=== PATIENT | male | born 1965 | race Caucasian/White ===

== ENCOUNTER 2019-09-21 01:42 | Emergency (ER) | payer OTHER ==
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
[2019-09-21 05:32] VITALS: TEMP 97.6
[2019-09-21 05:33] VITALS: BP 125/73; O2SAT 99
--- NOTE | 2019-09-22 12:29 | RAD REPORT ---
EXAM DESCRIPTION: CT Head and Cervical Spine Without Intravenous Contrast CLINICAL HISTORY: The patient is 53 years old and is Male; PAIN TECHNIQUE: Axial computed tomography images of the head/brain and cervical spine without intravenous contrast. Sagittal and coronal reformatted images were created and reviewed. This CT exam was pe rformed using one or more of the following dose reduction techniques: automated exposure control, a djustment of the mA and/or kV according to patient size, and/or use of iterative reconstruction techn ique. COMPARISON: No relevant prior studies available. FINDINGS: BRAIN: Unremarkable. No hemorrhage. No significant white matter disease. No edema. VENTRICLES: Unremarkable. No ventriculomegaly. SKULL: No acute fracture. SINUSES: Mucoperiosteal thickening of the maxillary sinuses and ethmoid air cells is noted. MASTOID AIR CELLS: Unremarkable as visualized. No mastoid effusion. VERTEBRAE: The vertebral body heights and alignment are maintained. No acute fracture. DISCS/SPINAL CANAL/NEURAL FORAMINA: The intervertebral disc spaces are maintained. No spinal can al stenosis. SOFT TISSUES: The soft tissues are normal. LUNG APICES: The lung apices are clear. IMPRESSION: 1. No acute intracranial findings. 2. No fracture or malalignment of the cervical spine. Electronically signed by: Macarena Solano MD 09/21/2019 5:01 AM CDT Due to temporary technical issues with the PACS/Fluency reporting system, reports are being signed by the in house radiologist as a courtesy to ensure prompt reporting. The interpreting radiologist is f ully responsible for the content of the report.
== END 2019-09-21 05:16 | disposition home or self-care (01) ==
LOC: ER 01:42
DX: S00.12XA Contusion of left eyelid and periocular area, initial encounter (principal); W22.8XXA Striking against or struck by other objects, initial encounter; Y93.9 Activity, unspecified; Y92.89 Other specified places as the place of occurrence of the external cause; Z23 Encounter for immunization; Z88.8 Allergy status to other drugs, medicaments and biological substances; I10 Essential (primary) hypertension; E78.00 Pure hypercholesterolemia, unspecified; F17.210 Nicotine dependence, cigarettes, uncomplicated
CPT/HCPCS: 70450; 72125; 99283

== ENCOUNTER 2021-10-14 21:02 | Emergency (ER) | payer OTHER ==
--- OUTSIDE RECORDS SUMMARY | 2021-10-14 21:04 | XMS REPORT | Continuity of Care Document ---
:1965 Author Organization [facility] t Address [address] [place] [address] Care Team Providers Name Role Phone LYNNETTE Attending Clinician Unavailable MD FERNY CHURCH Attending Clinician Unavailable LYNNETTE Admitting Clinician Unavailable MD FERNY CHURCH Admitting Clinician Unavailable Problems This patient has no known problems. Allergies, Adverse Reactions, Alerts This patient has no known allergies or adverse reactions. Medications This patient has no known medications. Procedures This patient has no known procedures. Encounters Start End Encounter Admission Attending Care Care Encounter Source Date/Time Date/Time Type Type Clinicians Facility Department ID 2021-01-07 2021-01-07 Outpatient [facility] [id number] [place] 00:00:00 00:00:00 [facility] [address] 2021-01-05 2021-01-05 Outpatient [facility] [id number] [place] 00:00:00 00:00:00 SERGEY [address] 2020-12-24 2020-12-24 Outpatient [facility] [id number] [place] 00:00:00 00:00:[address] 2020-12-21 2020-12-21 Outpatient [facility] [id number] [place] 00:00:00 00:00:[address] Results Test Description Test Time Test Comments Results Result Comments Source SARS-CoV-2 (COVID-19) RNA [Presence] in Respiratory sp ecimen by 2021-01-05 15:48:53 JOSLYN with probe detection Test Item Value Reference Range Interpretation Comme nts SARS-CoV-2 (COVID-19) RNA [Presence] in Respiratory Not detected No t-Detected specimen by JOSLYN with probe detection (test code = 60098-9)
--- NOTE | 2021-10-14 21:45 | RAD REPORT ---
EXAM DESCRIPTION: Katarina Single View10/14/2021 9:34 pm CLINICAL HISTORY: Hypertension COMPARISON: October 14, 2021 FINDINGS: The lungs appear clear of acute infiltrate. The heart is normal size IMPRESSION: No acute abnormalities displayed
[2021-10-14 21:56] LABS: Basophils % 0.4 % (0-1.3); Hematocrit 48.6 % (39.6-49.0); Lymphocytes % 11.2 % (15.3-44.8); MPV 7.7 fL (7.6-11.3); RBC Red Blood Cell Count 5.43 M/uL (4.33-5.43)
--- NOTE | 2021-10-14 22:05 | RAD REPORT ---
EXAM DESCRIPTION: CT - Ct Stroke Brain Wo Cont - 10/14/2021 9:51 pm CLINICAL HISTORY: Left facial numbness COMPARISON: 2019 TECHNIQUE: Computed axial tomography of the head was obtained. All CT scans are performed using dose optimization technique as appropriate and may include automated exposure control or mA/KV adjustment according to patient size. FINDINGS: An intracranial bleed is not seen . The ventricles are normal in caliber. No extra-axial fluid collection is noted. Moderate ethmoid sinusitis. IMPRESSION: No acute intracranial abnormality is seen. If patient's symptoms persist MRI of the bra in would be recommended. Dr Perez of the emergency room was notified at 9:56 p.m. October 14, 2021
[2021-10-14 22:10] LABS: Protime INR 0.91
[2021-10-14 22:11] LABS: Barbiturates NEGATIVE (NEGATIVE); Benzodiazepines NEGATIVE (NEGATIVE); Cocaine NEGATIVE (NEGATIVE); METHAMPHETAM NEGATIVE (NEGATIVE); Methadone NEGATIVE (NEGATIVE); Opiates NEGATIVE (NEGATIVE); Phencyclidine NEGATIVE (NEGATIVE); THC Cannibis NEGATIVE (NEGATIVE)
[2021-10-14 22:16] LABS: ALT/SGPT 39 U/L (12-78); AST/SGOT 16 U/L (15-37); Albumin 3.8 g/dL (3.4-5.0); Alkaline Phosphatase 73 U/L (45-117); BUN Blood Urea Nitrogen 12 mg/dL (7-18); Bicarbonate 18 mmol/L (21-32); Bilirubin Direct < 0.1 mg/dL (0-0.2); Bilirubin Total 0.2 mg/dL (0.2-1.0); CKMB Creatine Kinase MB 1.4 ng/mL (1.0-3.6); Creatine Phosphokinase 100 U/L (39-308); Glucose Level 100 mg/dL (74-106); Potassium 3.9 mmol/L (3.5-5.1); Protein, Total 7.4 g/dL (6.4-8.2); Sodium Level 142 mmol/L (136-145); Troponin (Emerg Dept Use Only) < 0.02 ng/mL (0.0-0.045)
[2021-10-14 22:19] LABS: Magnesium 2.3 mg/dL (1.8-2.4); Phosphorus 4.4 mg/dL (2.5-4.9)
--- NOTE | 2021-10-15 00:46 | ER ---
Nurse's Notes [facility] Name: Chevy Henderson Age: 55 yrs Sex: Male : 1965 Arrival Date: 10/14/2021 Time: 21:05 Bed 13 Private MD: Diagnosis: Weakness;Paresthesia;Alcohol Use;Sinusitis, Ethmoid Presentation: 10/14 21:14 Chief complaint: EMS states: they were toned out for report of pt with weakness in bb legs, faint feeling, light-headedness which started yesterday and worsened today. Coronavirus screen: At this time, the client does not indicate any symptoms associated with coronavirus-19. Ebola Screen: No symptoms or risks identified at this time. Initial Sepsis Screen: Does the patient meet any 2 criteria? No. Patient's initial sepsis screen is negative. Does the patient have a suspected source of infection? No. Patient's initial sepsis screen is negative. Risk Assessment: Do you want to hurt yourself or someone else? Patient reports no desire to harm self or others. Onset of symptoms was October 13, 2021. 21:14 Method Of Arrival: EMS: [facility] bb 21:14 Acuity: YESICA 2 bb 21:40 No acute neurological deficit is noted. The patients blood glucose was checked prior to mr2 arriving to the hospital and was found to be hyperglycemic. The patients blood glucose has been rechecked and is now normal. Triage Assessment: 21:00 The onset of the patients symptoms was October 14, 2021 at 18:00. General: Appears in mr2 no apparent distress. distressed, Behavior is calm, cooperative. Pain: Denies pain. EENT: No deficits noted. 21:40 Neuro: No deficits noted. Reports weakness in left arm and left leg. mr2 Stroke Activation: Physician: Stroke Attending; Name: anitha; Notified At: ; Arrived At: Physician: Chief Stroke Resident; Name: ; Notified At: ; Arrived At: Physician: Stroke Resident; Name: ; Notified At: ; Arrived At: Physician: ED Attending; Name: ; Notified At: ; Arrived At: Physician: ED Resident; Name: ; Notified At: ; Arrived At: Historical: - Allergies: 21:17 "steroids"; bb 21:17 Iodine; bb - Home Meds: 21:17 atenolol 50 mg Oral tab [Active]; atorvastatin 20 mg Oral tab [Active]; bb - PMHx: 21:17 High Cholesterol; Hypertension; bb - PSHx: 21:17 heart cath; bb - Immunization history:: Adult Immunizations up to date, Client reports receiving the 2nd dose of the Covid vaccine. - Social history:: Smoking status: Patient reports the use of cigarette tobacco products, denies chronic smoking, but will smoke occasionally. Screenin:30 Abuse screen: Denies threats or abuse. Denies injuries from another. Nutritional mr2 screening: No deficits noted. Tuberculosis screening: No symptoms or risk factors identified. Fall Risk None identified. Assessment: 09:36 The patient tolerated 90mL of water. No drooling, immediate coughing, gurgling, or mr2 clearing of the throat was noted. 21:30 VAN Scoring: Arm Drift: Patients demonstrates NO arm weakness. Patient is VAN Negative. mr2 Visual Disturbance: No visual disturbance noted. Aphasia: No aphasia noted. Neglect: No neglect noted. Patient has been NPO before screening. The patient is alert, and able to follow commands. The patient does not exhibit slurred or garbled speech. The patient is not exhibiting difficulty speaking. The patient does not exhibit difficulty understanding words. The patient is able to swallow own secretions with no drooling or need for suction. Patient tolerated one teaspoon of water. No drooling, immediate coughing, gurgling, or clearing of the throat was noted. The patient passed the bedside swallow screening. Oral medications may be given as ordered. Contact Physician for further diet orders. Provider notified of bedside swallow screening results: Kenneth Perez MD. T-PA (Activase) Screening: Indications: Treatment will start within 4.5 hours onset of symptoms: Yes. Contraindications:. Neuro: No deficits noted. Vital Signs: 21:14 BP 141 / 86; Pulse 80; Resp 16 S; Temp 97.7(O); Pulse Ox 96% on R/A; Weight 113.4 kg bb (R); Height 5 ft. 10 in. (177.80 cm) (R); 21:14 Body Mass Index 35.87 (113.40 kg, 177.80 cm) bb NIH Stroke Scale Scores: 21:10 NIHSS Score: 0 mh7 21:30 NIHSS Score: 0 mr2 ED Course: 21:05 Patient arrived in ED. cf2 21:07 Kenneth Perez MD is Attending Physician. mh7 21:17 Triage completed. bb 21:17 Arm band placed on Patient placed in an exam room, on a stretcher, on pulse oximetry. bb 21:30 Patient has correct armband on for positive identification. Bed in low position. Call mr2 light in reach. Side rails up X2. 21:30 No provider procedures requiring assistance completed. mr2 21:30 Inserted saline lock: 18 gauge in right antecubital area, using aseptic technique. mr2 21:32 Spike Howell, SANDRA is Primary Nurse. mr2 21:33 Stroke CXR 1 View In Process Unspecified. EDMS 21:51 CT Stroke Brain w/o Contrast In Process Unspecified. EDMS 22:39 ETOH Level Sent. mr2 22:39 Basic Metabolic Panel Sent. mr2 10/15 00:44 Rashi Edmond MD is Referral Physician. 7 Administered Medications: No medications were administered Point of Care Testing: Blood Glucose: 01:11 Blood Glucose: 116 mg/dL; mr2 Ranges: Outcome: 10/14 21:30 Discharged to home ambulatory, with family. mr2 Condition: good Discharge instructions given to patient, Instructed on discharge instructions, follow up and referral plans. medication usage, Prescriptions given X 2. 10/15 00:46 Discharge ordered by . [facility] 01:18 Patient left the ED. mr2 NIH Stroke Scale - NIH Stroke Score Date: 10/14/2021 Time: 21:10 Total Score = 0 1a. Level of Consciousness (LOC) - 0(Alert) 1b. Level of Consciousness (LOC) (Month \\T\\ Age) - 0(Both) 1c. LOC Commands (Open \\T\\ Closes Eyes/Nutritional Chemist) - 0(Both) 2. Best Gaze (Lateral Gaze Paresis) - 0(Normal) 3. Visual Field Loss - 0(No visual loss) 4. Facial Palsy - 0(Normal) 5a. Left Arm: Motor (10-second hold) - 0(No drift) 5b. Right Arm: Motor (10-second hold) - 0(No drift) 6a. Left Leg: Motor (5-second hold - always test supine) - 0(No drift) 6b. Right Leg: Motor (5-second hold - always test supine) - 0(No drift) 7. Limb Ataxia (finger/nose \\T\\ heel/sanchez - test with eyes open) - 0(Absent) 8. Sensory Loss (pinprick arms/legs/face) - 0(Normal) 9. Best Language: Aphasia (description/naming/reading) - 0(No aphasia) 10. Dysarthria (speech clarity - read or repeat words) - 0(Normal) 11. Extinction and Inattention (visual/tactile/auditory/spatial/personal) - 0(No abnormality) Initials: [facility] NIH Stroke Scale - NIH Stroke Score Date: 10/14/2021 Time: 21:30 Total Score = 0 1a. Level of Consciousness (LOC) - 0(Alert) 1b. Level of Consciousness (LOC) (Month \\T\\ Age) - 0(Both) 1c. LOC Commands (Open \\T\\ Closes Eyes/Nutritional Chemist) - 0(Both) 2. Best Gaze (Lateral Gaze Paresis) - 0(Normal) 3. Visual Field Loss - 0(No visual loss) 4. Facial Palsy - 0(Normal) 5a. Left Arm: Motor (10-second hold) - 0(No drift) 5b. Right Arm: Motor (10-second hold) - 0(No drift) 6a. Left Leg: Motor (5-second hold - always test supine) - 0(No drift) 6b. Right Leg: Motor (5-second hold - always test supine) - 0(No drift) 7. Limb Ataxia (finger/nose \\T\\ heel/sanchez - test with eyes open) - 0(Absent) 8. Sensory Loss (pinprick arms/legs/face) - 0(Normal) 9. Best Language: Aphasia (description/naming/reading) - 0(No aphasia) 10. Dysarthria (speech clarity - read or repeat words) - 0(Normal) 11. Extinction and Inattention (visual/tactile/auditory/spatial/personal) - 0(No abnormality) Initials: mr2 Signatures: Dispatcher [employer] Marie Maddox, RN RN Balwinder Simmons 2 Kenneth Perez MD MD [facility] Spike Howell RN RN mr2
--- NOTE | 2021-10-15 00:47 | EDPHYS ---
Physician Documentation [facility] Name: Chevy Henderson Age: 55 yrs Sex: Male : 1965 Arrival Date: 10/14/2021 Time: 21:05 Bed 13 Private MD: ED Physician Kenneth Perez HPI: 10/14 21:10 This 55 yrs old Male presents to ER via EMS with complaints of S/S of Possible Stroke. 7 21:10 The patient's problem is reported as paresthesias, in left upper extremity, in left mh7 lower extremity, in left side of face, weakness, in the right lower extremity, in the left lower extremity. Onset: The symptoms/episode began/occurred yesterday. Duration: The episodes are intermittent, the symptoms became worse today. Context: the episode(s) was witnessed, by family, , symptoms became apparent at an unknown time, occurred at home, occurred while the patient was sitting, Possible contributing factors include:. The symptoms are alleviated by nothing. The symptoms are aggravated by standing, walking. Associated signs and symptoms: Pertinent positives: ataxia, dizziness, lightheadedness, numbness, tingling, weakness, Pertinent negatives: abdominal pain, agitation, blurred vision, chest pain, combativeness, confusion, diaphoresis, diarrhea, headache, nausea, palpitations, seizure, shortness of breath, vertigo, vomiting. Severity of symptoms: At their worst the symptoms were moderate today, in the emergency department the symptoms have improved moderately. Patient's baseline: Neuro: alert and fully oriented, Motor: no deficits, Ambulation: walks without assistance, Speech: normal. Historical: - Allergies: 21:17 "steroids"; bb 21:17 Iodine; bb - Home Meds: 21:17 atenolol 50 mg Oral tab [Active]; atorvastatin 20 mg Oral tab [Active]; bb - PMHx: 21:17 High Cholesterol; Hypertension; bb - PSHx: 21:17 heart cath; bb - Immunization history:: Adult Immunizations up to date, Client reports receiving the 2nd dose of the Covid vaccine. - Social history:: Smoking status: Patient reports the use of cigarette tobacco products, denies chronic smoking, but will smoke occasionally. ROS: 21:10 Constitutional: Negative for fever, chills, and weight loss, Eyes: Negative for injury, mh7 pain, redness, and discharge, ENT: Negative for injury, pain, and discharge, Neck: Negative for injury, pain, and swelling, Cardiovascular: Negative for chest pain, palpitations, and edema, Respiratory: Negative for shortness of breath, cough, wheezing, and pleuritic chest pain, Abdomen/GI: Negative for abdominal pain, nausea, vomiting, diarrhea, and constipation, Back: Negative for injury and pain, : Negative for injury, bleeding, discharge, and swelling, Skin: Negative for injury, rash, and discoloration, Psych: Negative for depression, anxiety, suicide ideation, homicidal ideation, and hallucinations, Allergy/Immunology: Negative for hives, rash, and allergies, Endocrine: Negative for neck swelling, polydipsia, polyuria, polyphagia, and marked weight changes, Hematologic/Lymphatic: Negative for swollen nodes, abnormal bleeding, and unusual bruising. Exam: 21:10 Constitutional: This is a well developed, well nourished patient who is awake, alert, mh7 and in no acute distress. Head/Face: Normocephalic, atraumatic. Eyes: Pupils equal round and reactive to light, extra-ocular motions intact. Lids and lashes normal. Conjunctiva and sclera are non-icteric and not injected. Cornea within normal limits. Periorbital areas with no swelling, redness, or edema. Neck: Trachea midline, no thyromegaly or masses palpated, and no cervical lymphadenopathy. Supple, full range of motion without nuchal rigidity, or vertebral point tenderness. No Meningismus. Chest/axilla: Normal chest wall appearance and motion. Nontender with no deformity. No lesions are appreciated. Cardiovascular: Regular rate and rhythm with a normal S1 and S2. No gallops, murmurs, or rubs. Normal PMI, no JVD. No pulse deficits. Respiratory: Lungs have equal breath sounds bilaterally, clear to auscultation and percussion. No rales, rhonchi or wheezes noted. No increased work of breathing, no retractions or nasal flaring. Abdomen/GI: Soft, non-tender, with normal bowel sounds. No distension or tympany. No guarding or rebound. No evidence of tenderness throughout. Back: No spinal tenderness. No costovertebral tenderness. Full range of motion. Skin: Warm, dry with normal turgor. Normal color with no rashes, no lesions, and no evidence of cellulitis. MS/ Extremity: Pulses equal, no cyanosis. Neurovascular intact. Full, normal range of motion. 21:10 Psych: Awake, alert, with orientation to person, place and time. Behavior, mood, and affect are within normal limits. 21:10 Neuro: Orientation: is normal, Mentation: is normal, Memory: is normal, Cranial nerves: grossly normal, Cerebellar function: is grossly normal, Motor: is normal, Sensation: is normal, Gait: not tested. Deep tendon reflexes are normal, seizure activity, is not displayed by the patient, Abnormal movements: there are no abnormal movements. 10/15 07:01 Radiologist reports: Ethmoid sinusitis [facility] Vital Signs: 10/14 21:14 BP 141 / 86; Pulse 80; Resp 16 S; Temp 97.7(O); Pulse Ox 96% on R/A; Weight 113.4 kg bb (R); Height 5 ft. 10 in. (177.80 cm) (R); 21:14 Body Mass Index 35.87 (113.40 kg, 177.80 cm) NIH Stroke Scale Scores: 21:10 NIHSS Score: 0 [facility] 21:30 NIHSS Score: 0 mr2 MDM: 10/15 00:37 Differential diagnosis: CVA, TIA, metabolic disorder, drug effects. Data reviewed: [facility] vital signs, nurses notes, EMS record, old medical records, lab test result(s), cardiac enzymes, CBC, drug level(s), alcohol, electrolytes, urinalysis, urine drug screen, EKG, radiologic studies, CT scan, plain films. Data interpreted: Pulse oximetry: on room air is 96 %. Interpretation: normal. Counseling: I had a detailed discussion with the patient and/or guardian regarding: the historical points, exam findings, and any diagnostic results supporting the discharge/admit diagnosis, the presence of at least one elevated blood pressure reading (>120/80) during this emergency department visit, lab results, radiology results. Response to treatment: the patient's symptoms have resolved after treatment, the patient's blood pressure is in an acceptable range, mental status has returned to baseline, the patient no longer shows bradycardia, the patient is not short of breath, the patient is not tachycardic, the patient's pain is gone, the patient's temperature has normalized. Refusal of service: The patient/guardian displays adequate decision making capability and despite a detailed discussion of alternatives, benefits, risks, and consequences refuses: Admission to the hospital for further work-up and treatment. 00:41 ED course: Well-appearing, no acute distress, vital signs stable, no focal neurological [facility] deficits. Ambulating without difficulty and no numbness tingling or weakness. Discussed all test results and findings with the patient and recommended admission for further evaluation for possible TIA/CVA. Patient declined admission and request to be discharged from the ED he will follow-up with his doctor and neurology. Patient advised return to ED if return of symptoms or other urgent concerns.. 00:46 Patient medically screened. [facility] 10/14 21:22 Order name: Basic Metabolic Panel [facility] 10/14 21:22 Order name: CBC with Diff; Complete Time: 22:10 [facility] 10/14 21:22 Order name: CPK; Complete Time: 22:18 [facility] 10/14 21:22 Order name: Ckmb; Complete Time: 22:18 [facility] 10/14 21:22 Order name: Hepatic Function; Complete Time: 22:18 [facility] 10/14 21:22 Order name: Protime (+inr); Complete Time: 22:18 [facility] 10/14 21:22 Order name: Ptt, Activated; Complete Time: 22:18 [facility] 10/14 21:22 Order name: Troponin (emerg Dept Use Only); Complete Time: 22:18 [facility] 10/14 21:22 Order name: UDS; Complete Time: 22:18 [facility] 10/14 21:23 Order name: Basic Metabolic Panel; Complete Time: 22:18 [facility] 10/14 21:46 Order name: ETOH Level [facility] 10/14 21:47 Order name: Magnesium; Complete Time: 22:59 [facility] 10/14 21:47 Order name: Phosphorus; Complete Time: 22:59 [facility] 10/14 21:47 Order name: Alcohol Serum/Plasma; Complete Time: 22:18 [facility] 10/14 21:22 Order name: CT Stroke Brain w/o Contrast; Complete Time: 22:10 [facility] 10/14 21:22 Order name: Stroke CXR 1 View; Complete Time: 21:47 [facility] 10/14 21:22 Order name: EKG; Complete Time: 21:23 [facility] 10/14 21:22 Order name: Accucheck; Complete Time: 22:39 [facility] 10/14 21:22 Order name: Cardiac monitoring; Complete Time: 22:39 [facility] 10/14 21:22 Order name: EKG - Nurse/Tech; Complete Time: 22:39 [facility] 10/14 21:22 Order name: IV Saline Lock; Complete Time: 22:39 [facility] 10/14 21:22 Order name: Labs collected and sent; Complete Time: 22:40 [facility] 10/14 21:22 Order name: NPO; Complete Time: 22:40 [facility] 10/14 21:22 Order name: O2 Per Protocol; Complete Time: 22:40 [facility] 10/14 21:22 Order name: O2 Sat Monitoring; Complete Time: 22:40 [facility] 10/14 21:22 Order name: Stroke Swallow Screen; Complete Time: 22:40 [facility] Administered Medications: No medications were administered Point of Care Testing: Blood Glucose: 01:11 Blood Glucose: 116 mg/dL; mr2 Ranges: Critical Glucose Levels:Adult <50 mg/dl or >400 mg/dl <40 mg/dl or >180 mg/dl Disposition Summary: 10/15/21 00:46 Discharge Ordered Location: Home [facility] Problem: new [facility] Symptoms: are resolved [facility] Condition: Stable [facility] Diagnosis - Weakness [facility] - Paresthesia [facility] - Alcohol Use [facility] - Sinusitis, Ethmoid [facility] Followup: [facility] - With: Private Physician - When: 1 - 2 days - Reason: Worsening of condition, Recheck today's complaints, Continuance of care, Re-evaluation by your physician Followup: [facility] - With: Rashi Edmond MD - When: 1 - 2 days - Reason: Worsening of condition, Further diagnostic work-up, Recheck today's complaints Discharge Instructions: - Discharge Summary Sheet [facility] - Alcohol Intoxication, [id number] [facility] - Weakness, [id number] [facility] - Paresthesia, [id number] [facility] Forms: - Medication Reconciliation Form [facility] - Thank You Letter [facility] - Antibiotic Education [facility] - Prescription Opioid Use [facility] Prescriptions: - Zithromax Z-Robin 250 mg Oral Tablet - take 1 tablet by ORAL route as directed for 5 days Day 1 - take two (2) tablets [facility] one time. Day 2, 3, 4 , 5 take one (1) tablet once daily.; 6 tablet; Refills: 0, Product Selection Permitted NIH Stroke Scale - NIH Stroke Score Date: 10/14/2021 Time: 21:10 Total Score = 0 1a. Level of Consciousness (LOC) - 0(Alert) 1b. Level of Consciousness (LOC) (Month \\T\\ Age) - 0(Both) 1c. LOC Commands (Open \\T\\ Closes Eyes/Professional System Administrator) - 0(Both) 2. Best Gaze (Lateral Gaze Paresis) - 0(Normal) 3. Visual Field Loss - 0(No visual loss) 4. Facial Palsy - 0(Normal) 5a. Left Arm: Motor (10-second hold) - 0(No drift) 5b. Right Arm: Motor (10-second hold) - 0(No drift) 6a. Left Leg: Motor (5-second hold - always test supine) - 0(No drift) 6b. Right Leg: Motor (5-second hold - always test supine) - 0(No drift) 7. Limb Ataxia (finger/nose \\T\\ heel/sanchez - test with eyes open) - 0(Absent) 8. Sensory Loss (pinprick arms/legs/face) - 0(Normal) 9. Best Language: Aphasia (description/naming/reading) - 0(No aphasia) 10. Dysarthria (speech clarity - read or repeat words) - 0(Normal) 11. Extinction and Inattention (visual/tactile/auditory/spatial/personal) - 0(No abnormality) Initials: [facility] NIH Stroke Scale - NIH Stroke Score Date: 10/14/2021 Time: 21:30 Total Score = 0 1a. Level of Consciousness (LOC) - 0(Alert) 1b. Level of Consciousness (LOC) (Month \\T\\ Age) - 0(Both) 1c. LOC Commands (Open \\T\\ Closes Eyes/Professional System Administrator) - 0(Both) 2. Best Gaze (Lateral Gaze Paresis) - 0(Normal) 3. Visual Field Loss - 0(No visual loss) 4. Facial Palsy - 0(Normal) 5a. Left Arm: Motor (10-second hold) - 0(No drift) 5b. Right Arm: Motor (10-second hold) - 0(No drift) 6a. Left Leg: Motor (5-second hold - always test supine) - 0(No drift) 6b. Right Leg: Motor (5-second hold - always test supine) - 0(No drift) 7. Limb Ataxia (finger/nose \\T\\ heel/sanchez - test with eyes open) - 0(Absent) 8. Sensory Loss (pinprick arms/legs/face) - 0(Normal) 9. Best Language: Aphasia (description/naming/reading) - 0(No aphasia) 10. Dysarthria (speech clarity - read or repeat words) - 0(Normal) 11. Extinction and Inattention (visual/tactile/auditory/spatial/personal) - 0(No abnormality) Initials: mr2 Signatures: Dispatcher [employer] EDMS Marie Torres RN RN bb Kenneth Perez MD MD 7 Spike Howell RN RN mr2 Corrections: (The following items were deleted from the chart) 00:49 00:41 ED course: Well-appearing, no acute distress, vital signs stable, no [facility] focal neurological deficits. Ambulating without difficulty and no numbness tingling or weakness. Discussed all test results and findings with the patient and recommended admission for further evaluation. Patient declined admission and request to be discharged from the ED he will follow-up with his doctor and neurology. Patient advised return to ED if return of symptoms or other urgent concerns.. 7
[2021-10-15 01:32] VITALS: BP 141/86; TEMP 97.7; O2SAT 96
--- NOTE | 2021-10-19 08:18 | EKG ---
Test Date: 2021-10-14 Test Time: 21:37:34 [place] Machine Operator: MEASUREMENT RESULTS: Intervals: Rate: 83 ND: 174 QRSD: 90 QT: 382 QTc: 448 [place]: P: 16 ND: 174 QRS: -8 T: 4 INTERPRETIVE STATEMENTS: Normal sinus rhythm Normal ECG No previous ECG available for comparison Electronically Signed On 10-19-21 08:04:58 DISTILLERY MANAGER by Shaun Medellin
== END 2021-10-15 01:18 | disposition home or self-care (01) ==
LOC: ER 21:02
DX: R53.1 Weakness (principal); J32.2 Chronic ethmoidal sinusitis; Z72.89 Other problems related to lifestyle; I10 Essential (primary) hypertension; E78.00 Pure hypercholesterolemia, unspecified; F17.210 Nicotine dependence, cigarettes, uncomplicated; Z91.048 Other nonmedicinal substance allergy status
CPT/HCPCS: 36415; 70450; 71045; 80048; 80076; 80307; 80320; 82550; 82553; 83735; 84100; 84484; 85025; 85610; 85730; 93005; 99284